=== PATIENT | male | born 1965 | race Caucasian/White ===

== ENCOUNTER 2018-01-19 07:48 | Day surgery (SDC) | payer MEDICARE ==
[2018-01-19] MEDS ORDERED: PROPRANOLOL HCL 20 MG TABLET PO ONE (09:00)
[2018-01-19] MEDS ORDERED: ALBUTEROL SULFATE 0.083% NEB 2.5 MG/3 ML AMPUL NEB ONE (09:28)
[2018-01-19] MEDS ORDERED: MIDAZOLAM 2 MG/2 ML INJ ONE (10:06)
[2018-01-19] MEDS ORDERED: PROPOFOL INJ 200 MG/20 ML VIAL IV ONE (10:06)
[2018-01-19] MEDS ORDERED: MEPERIDINE HCL/PF INJ 25 MG/1 ML DISP.SYRIN IV PRN (10:22)
[2018-01-19] MEDS ORDERED: PROMETHAZINE HCL INJ 25 MG/1 ML VIAL IV PRN ×2 (10:22)
[2018-01-19] MEDS ORDERED: OXYCODONE-ACETAMINOPHEN 5-325 MG TABLET PO PRN ×2 (10:22)
[2018-01-19] MEDS ORDERED: DIPHENHYDRAMINE HCL 50 MG/ML VIAL IV PRN (10:22)
[2018-01-19] MEDS ORDERED: FENTANYL CITRATE INJ/PF 100 MCG/2 ML AMPUL IV PRN ×3 (10:22)
[2018-01-19 12:08] VITALS: BP 128/71
--- NOTE | 2018-01-19 12:32 | Operative Report ---
Operative Report DATE OF SURGERY: 01/19/18 Operative Report: the risks, benefits and alternatives are discussed with the patient informed consent is obtained time out is called Propofol sedation provided colonoscopy to the cecum with intubation of the TI all other segments are visualized retroflexion is performed PREOPERATIVE DIAGNOSIS: blood in stools. ? IBD POSTOPERATIVE DIAGNOSIS: normal colonoscopy. mild ileitis, biopsy. internal hemorrhoids OPERATION: colonoscopy with bx SURGEON: DESTINEE REILLY ANESTHESIA: LMAC TISSUE REMOVED OR ALTERED: as noted above COMPLICATIONS: none ESTIMATED BLOOD LOSS: none INTRAOPERATIVE FINDINGS: as noted above PROCEDURE: patient tolerated his procedure well no post procedure complications are noted patient is discharged in good condition discharge date 01/19/18 discharge diet and activity : as tolerated follow up in 2-3 weeks patient is advised to call office or go to ED if any other issues will wait on path
--- NOTE | 2018-01-19 13:12 | Operative Report ---
Operative Report DATE OF SURGERY: 01/19/18 Operative Report: Previous noted should be disregarded Risks, benefits and alternatives are discussed with the patient in detail time out is called Propofol sedation is provided colonoscopy is advanced to the cecum prep is good photodocumentation is provided PREOPERATIVE DIAGNOSIS: blood in stools. encounter for colorectal cancer screening POSTOPERATIVE DIAGNOSIS: normal colonoscopy, colon polyps x3, 2 ablated in situ , 1 snared and retrived. internal hemorrhoids OPERATION: colonoscopy with snare polypectomy SURGEON: DESTINEE REILLY ANESTHESIA: LMAC TISSUE REMOVED OR ALTERED: as noted above COMPLICATIONS: none ESTIMATED BLOOD LOSS: none INTRAOPERATIVE FINDINGS: as noted above PROCEDURE: patient tolerated the procedure well no post procedure complications patient is discharged in good condition discharge date: 01/19/18 discharge activity and diet: as tolerated patient will need colonoscopy in 3-5 years follow in 2-3 weeks wait on pathology patient is instructed to call the office or go to ED as needed
== END 2018-01-19 12:05 | disposition home or self-care (01) ==
LOC: OROUT 07:48
PROVIDERS: ATTEND Internal Medicine Gastroenterology
DX: K92.1 Melena (principal); K63.5 Polyp of colon; K64.8 Other hemorrhoids; F17.210 Nicotine dependence, cigarettes, uncomplicated; K21.9 Gastro-esophageal reflux disease without esophagitis; Z79.899 Other long term (current) drug therapy
CPT/HCPCS: 45385; 88305 ×2; J2250; A9270 ×2; J2704; 812; J3490

== ENCOUNTER 2019-12-06 09:03 | Observation (INO) | payer MEDICARE ==
[2019-12-06 09:57] LABS: ABSOLUTE LYMPHOCYTES (AUTO) 1.2 10^3/uL (0.5-4.7); ABSOLUTE MONOCYTES (AUTO) 0.9 10^3/uL (0.1-1.4); ABSOLUTE NEUT (AUTO) 4.6 10^3/uL (1.7-8.2); BASOPHILS % (AUTO) 0.5 % (0-2); EOSINOPHILS % (AUTO) 0.2 % (0-6); HEMATOCRIT 43.3 % (37.9-51.0); LYMPHOCYTES % (AUTO) 18.2 % (13-45); MEAN CORPUSCULAR HEMOGLOBIN 31.9 pg (27.0-33.4); MEAN CORPUSCULAR HGB CONC 34.6 g/dL (32.0-36.0); MEAN CORPUSCULAR VOLUME 92 fl (80-97); MONOCYTES % (AUTO) 12.7 % (3-13); PLATELET COUNT 224 10^3/uL (150-450); RED CELL DISTRIBUTION WIDTH 13.5 % (11.5-14.0); SEGMENTED NEUTROPHILS % (AUTO) 68.4 % (42-78); TOTAL CELLS COUNTED % (AUTO) 100 %; WHITE BLOOD COUNT 6.7 10^3/uL (4.0-10.5)
--- NOTE | 2019-12-06 10:00 | RADIOLOGY REPORT (SQ) ---
EXAM DESCRIPTION: CHEST SINGLE VIEW COMPLETED DATE/TIME: 12/06/2019 9:50 am REASON FOR STUDY: BED 16 DB COMPARISON: 02/28/2010 EXAM PARAMETERS: NUMBER OF VIEWS: One view. TECHNIQUE: Single frontal radiographic view of the chest acquired. RADIATION DOSE: NA LIMITATIONS: None. FINDINGS: LUNGS AND PLEURA: Trace right effusion versus pleural thickening. Minimal subjacent opaci ties at the costophrenic angle. No pneumothorax. Unremarkable left hemithorax. MEDIASTINUM AND HILAR STRUCTURES: No masses. Contour normal. HEART AND VASCULAR STRUCTURES: Heart normal in size. Normal vasculature. BONES: No acute findings. HARDWARE: Partially visualized cervical fusion hardware. OTHER: No other significant finding. IMPRESSION: Trace right effusion and basilar opacities, possibly atelectasis or infection. TECHNICAL DOCUMENTATION: JOB ID: [id number] 2010 [employer]- All Rights Reserved Reading location - IP/workstation name: [email or web address]
[2019-12-06] MEDS ORDERED: IPRATROPIUM BROMIDE 0.02% NEB 0.5 MG/2.5 ML AMPUL NEB ONE (10:15)
[2019-12-06] MEDS ORDERED: ALBUTEROL SULFATE 0.083% NEB 2.5 MG/3 ML AMPUL NEB ONE (10:15)
[2019-12-06] MEDS ORDERED: CEFTRIAXONE 2 GM/D5W RTU 2 GM/50 ML RTUPB IV ONE (10:16)
[2019-12-06] MEDS ORDERED: AZITHROMYCIN 250 MG TABLET PO ONE (10:16)
[2019-12-06 10:17] LABS: ALBUMIN 4.5 g/dL (3.5-5.0); ALKALINE PHOSPHATASE 63 U/L (38-126); ANION GAP 12 (5-19); ASPARTATE AMINO TRANSFERASE 35 U/L (17-59); BILIRUBIN,DIRECT 0.1 mg/dL (0.0-0.4); BILIRUBIN,TOTAL 0.5 mg/dL (0.2-1.3); BLOOD UREA NITROGEN 11 mg/dL (7-20); CALCIUM 8.7 mg/dL (8.4-10.2); CARBON DIOXIDE 29 mmol/L (22-30); CHLORIDE 95 mmol/L (98-107); CREATINE KINASE 232 U/L (55-170); GLUCOSE 113 mg/dL (75-110); POTASSIUM 4.2 mmol/L (3.6-5.0); TOTAL PROTEIN 7.4 g/dL (6.3-8.2)
[2019-12-06 10:28] LABS: CREATINE KINASE MB 2.87 ng/mL (<4.55)
--- NOTE | 2019-12-06 10:30 | ER Document Report ---
ED General - General Chief Complaint: Breathing Difficulty Stated Complaint: SHORTNESS OF BREATH/HEADACHE Time Seen by Provider: 12/06/19 09:38 Primary Care Provider: RIA FOUNTAIN PA-C [Primary Care Provider] - Follow up as needed Mode of Arrival: Ambulatory Information source: Patient TRAVEL OUTSIDE OF THE [place] IN LAST 30 DAYS: No - HPI Notes: Patient complains of shortness of breath and cough for several days. He has had some subjective fever and chills. No significant vomiting or diarrhea. No significant past medical history. Patient is a daily smoker. The shortness of breath is been constant. Is been moderate to severe. Worse with exertion better with rest. No radiation of the symptoms. He denies any significant productivity from the cough. - Related Data Allergies/Adverse Reactions: No Known Allergies Allergy (Verified 12/06/19 09:52) Home Medications: Paroxetine, Propanolol, tempazepam, rexulti, doxepin. Past Medical History - General Information source: Patient - Social History Smoking Status: Current Every Day Smoker Chew tobacco use (# tins/day): No Frequency of alcohol use: None Drug Abuse: None Family History: Reviewed & Not Pertinent Patient has suicidal ideation: No Patient has homicidal ideation: No - Past Medical History Cardiac Medical History: Denies: Hx Coronary Artery Disease, Hx Heart Attack, Hx Hypertension Pulmonary Medical History: Denies: Hx Asthma, Hx Bronchitis, Hx COPD, Hx Pneumonia Neurological Medical History: Denies: Hx Cerebrovascular Accident, Hx Seizures GI Medical History: Reports: Hx Gastroesophageal Reflux Disease Musculoskeletal Medical History: Denies Hx Arthritis Psychiatric Medical History: Reports: Hx Depression Review of Systems - Review of Systems Constitutional: Chills, Fever, Malaise Cardiovascular: denies: Chest pain, Palpitations Respiratory: Cough, Short of breath -: Yes All other systems reviewed and negative Physical Exam - Vital signs Vitals: Temp Pulse Resp BP Pulse Ox 99.5 F 89 36 H 131/78 H 83 L 12/06/19 09:09 12/06/19 09:09 12/06/19 09:09 12/06/19 09:09 12/06/19 09:09 Interpretation: Hypoxic - General General appearance: Alert In distress: Mild - respiratory - HEENT Head: Normocephalic, Atraumatic Eyes: Normal Pupils: PERRL - Respiratory Respiratory status: Respiratory distress - mild, Tachypnea Chest status: Nontender Breath sounds: Rhonchi, Wheezing Chest palpation: Normal - Cardiovascular Rhythm: Regular Heart sounds: Normal auscultation Murmur: No - Abdominal Inspection: Normal Distension: No distension Bowel sounds: Normal Tenderness: Nontender Organomegaly: No organomegaly - Back Back: Normal, Nontender - Extremities General upper extremity: Normal inspection, Nontender, Normal color, Normal ROM, Normal temperature General lower extremity: Normal inspection, Nontender, Normal color, Normal ROM, Normal temperature, Normal weight bearing. No: Shawna's sign - Neurological Neuro grossly intact: Yes Cognition: Normal Orientation: AAOx4 [place] Coma Scale Eye Opening: Spontaneous [place] Coma Scale Verbal: Oriented Concepcion Coma Scale Motor: Obeys Commands Concepcion Coma Scale Total: 15 Speech: Normal Motor strength normal: LUE, RUE, LLE, RLE Sensory: Normal - Psychological Associated symptoms: Normal affect, Normal mood - Skin Skin Temperature: Warm Skin Moisture: Dry Skin Color: Normal Course - Re-evaluation Re-evalutation: 12/06/19 11:35 Patient presents with shortness of breath. He was hypoxic. He is a daily smoker. However he does not follow with a physician regularly so my suspicion is he has an undiagnosed COPD. I will treat the patient with nebulizers antibiotics and I referred the patient for admission. - Vital Signs Vital signs: Temp Pulse Resp BP Pulse Ox 98.9 F 89 21 H 127/79 H 86 L 12/06/19 10:01 12/06/19 09:09 12/06/19 10:01 12/06/19 10:01 12/06/19 10:01 - Laboratory Result Diagrams: 12/06/19 09:39 12/06/19 09:39 Laboratory results interpreted by me: 12/06/19 12/06/19 12/06/19 09:39 09:39 10:57 Sodium 135.7 L Chloride 95 L Glucose 113 H Creatine Kinase 232 H NT-Pro-B Natriuret Pep 157 H Urine Protein 100 H Urine Ketones 80 H Urine Blood SMALL H Urine Urobilinogen 2.0 H - Diagnostic Test Radiology reviewed: Image reviewed, Reports reviewed Discharge - Discharge Clinical Impression: Hypoxia URI (upper respiratory infection) Qualifiers: URI type: unspecified URI Qualified Code(s): J06.9 - Acute upper respiratory infection, unspecified Respiratory failure with hypoxia Qualifiers: Chronicity: acute Qualified Code(s): J96.01 - Acute respiratory failure with hypoxia Condition: Fair Disposition: ADMITTED INPATIENT Admitting Provider: [facility] (Hospitalist) Unit Admitted: Medical Floor - [place] to admit Referrals: RIA FOUNTAIN PA-C [Primary Care Provider] - Follow up as needed
[2019-12-06 10:34] LABS: TROPONIN I < 0.012 ng/mL
[2019-12-06 10:36] LABS: A TYPE INFLUENZA AG NEGATIVE (NEGATIVE); B INFLUENZA AG NEGATIVE (NEGATIVE)
[2019-12-06 11:18] LABS: APPEARANCE,URINE SLIGHTLY-CLOUDY; BILIRUBIN,URINE NEGATIVE (NEGATIVE); GLUCOSE, URINE NEGATIVE (NEGATIVE); KETONES,URINE 80 mg/dL (NEGATIVE); LEUKOCYTE ESTERASE,URINE NEGATIVE (NEGATIVE); NITRITE,URINE NEGATIVE (NEGATIVE); PROTEIN,URINE 100 mg/dL (NEGATIVE); URINE SPECIFIC GRAVITY 1.028
[2019-12-06 11:24] LABS: COLOR,URINE YELLOW
[2019-12-06] MEDS ORDERED: METHYLPREDNISOLONE INJ 125 MG/2 ML SDV IV ONE (11:37)
[2019-12-06] MEDS ORDERED: ONDANSETRON HCL INJ/PF 4 MG/2 ML SDV IV PRN (12:47)
[2019-12-06] MEDS ORDERED: ACETAMINOPHEN 325 MG TABLET PO PRN (12:47)
[2019-12-06] MEDS ORDERED: NORMAL SALINE 1000 ML 1,000 ML IV PRN (12:47)
[2019-12-06] MEDS ORDERED: MAG HYDROX/AL HYDROX/SIMETH SUSP 30 ML UDCUP PO PRN (12:47)
[2019-12-06] MEDS ORDERED: ALBUTEROL SULFATE 0.083% NEB 2.5 MG/3 ML AMPUL NEB PRN (12:47)
[2019-12-06 12:50] LABS: ARTERIAL BLOOD BASE EXCESS 2.8 mmol/L; ARTERIAL BLOOD FIO2 4L; ARTERIAL BLOOD H2CO3 1.74 mmol/L (1.05-1.35); ARTERIAL BLOOD HCO3 30.2 mmol/L (20-24); ARTERIAL BLOOD PCO2 57.9 mmHg (35-45); ARTERIAL BLOOD PH 7.34 (7.35-7.45); ARTERIAL BLOOD PO2 56.5 mmHg (80-100)
[2019-12-06] MEDS ORDERED: GUAIFENESIN SYRP 200 MG/10 ML UDC PO PRN (12:54)
--- NOTE | 2019-12-06 13:14 | PDOC H&P ---
History of Present Illness Admission Date/PCP: 12/06/19 11:56 RIA FOUNTAIN PA-C Patient complains of: shortness of breath History of Present Illness: JANET KING is a 54 year old male with a past medical history significant for anxiety/depression, short-term memory loss, tobacco dependence with continued use, and likely undiagnosed COPD based upon presenting symptoms and chest x-ray findings he presented to the emergency department today with a complaint of 3 days of progressively worsening shortness of breath, frontal headache, malaise, fatigue, and productive cough. The patient's family members have had similar symptoms about a severe over the previous 1 to 2 weeks. Evaluation in the emergency department revealed hypoxia on room air (84%) and low-grade temperature of 99.5. CBC, chemistry, troponin, proBNP, lactic acid, and influenza were benign. Urinalysis shows dehydration with increase specific gravity, protein, and ketones. ABG demonstrates a partially compensated respiratory acidosis with hypercapnia and hypoxia. Chest x-ray shows possible right basilar atelectasis versus pneumonia. Patient who is has received supplemental oxygen, nebulizer treatments, Solu- Medrol, azithromycin and Rocephin. He is referred to the hospitalist service for admission and management of the above-stated complaints and findings. Past Medical History Cardiac Medical History: Reports: None Pulmonary Medical History: Reports: None EENT Medical History: Reports: None Neurological Medical History: Reports: Other - Chronic short-term memory loss Endocrine Medical History: Reports: None Renal/ Medical History: Reports: None Malignancy Medical History: Reports: None GI Medical History: Reports: Gastroesophageal Reflux Disease Musculoskeltal Medical History: Denies: Arthritis Psychiatric Medical History: Reports: Depression, General Anxiety Disorder, Post Traumatic Stress Disorder, Tobacco Dependency Traumatic Medical History: Reports: None Hematology: Denies: Anemia Infectious Medical History: Reports: None Past Surgical History Past Surgical History: Reports: None Social History Information Source: Patient Lives with: Family Smoking Status: Current Every Day Smoker Cigarettes Packs Per Day: 1 Electronic Cigarette use?: No Frequency of Alcohol Use: None Hx Recreational Drug Use: No Hx Prescription Drug Abuse: No - Advance Directive Resuscitation Status: Full Code Family History Family History: Reviewed & Not Pertinent Parental Family History Reviewed: Yes Children Family History Reviewed: Yes Sibling(s) Family History Reviewed.: Yes Medication/Allergy Home Medications: Brexpiprazole [Rexulti] 3 mg PO DAILY 01/19/18 Doxepin HCl [Silenor] 3 mg PO HSP PRN 01/19/18 Esomeprazole Magnesium [Nexium] 40 mg PO DAILY 01/19/18 Paroxetine HCl [Paxil] 30 mg PO DAILY 01/19/18 Propranolol HCl [Inderal 20 mg Tablet] 20 mg PO BID 01/19/18 Temazepam 30 mg PO HSP PRN 01/19/18 Allergies/Adverse Reactions: No Known Allergies Allergy (Verified 12/06/19 09:52) Review of Systems Constitutional: PRESENT: anorexia, fatigue, headache(s), night sweats. ABSENT: chills, fever(s), weight gain, weight loss Eyes: ABSENT: visual disturbances Ears: ABSENT: hearing changes Cardiovascular: PRESENT: dyspnea on exertion. ABSENT: chest pain, edema, orthropnea, palpitations Respiratory: PRESENT: cough, dyspnea, sputum. ABSENT: hemoptysis Gastrointestinal: ABSENT: abdominal pain, constipation, diarrhea, hematemesis, hematochezia, nausea, vomiting Genitourinary: ABSENT: dysuria, hematuria Musculoskeletal: ABSENT: joint swelling Integumentary: ABSENT: rash, wounds Neurological: ABSENT: abnormal gait, abnormal speech, confusion, dizziness, focal weakness, syncope Psychiatric: ABSENT: anxiety, depression, homidical ideation, suicidal ideation Endocrine: ABSENT: cold intolerance, heat intolerance, polydipsia, polyuria Hematologic/Lymphatic: ABSENT: easy bleeding, easy bruising Physical Exam Vital Signs: Temp Pulse Resp BP Pulse Ox 98.9 F 89 26 H 118/72 90 L 12/06/19 10:01 12/06/19 09:09 12/06/19 12:01 12/06/19 12:01 12/06/19 12:01 Intake & Output 12/05/19 12/06/19 12/07/19 06:59 06:59 06:59 Intake Total 50 Balance 50 Weight 80.739 kg General appearance: PRESENT: no acute distress, cooperative, well-developed, well-nourished, other - Acutely ill-appearing Head exam: PRESENT: atraumatic, normocephalic Eye exam: PRESENT: conjunctiva pink, EOMI, PERRLA. ABSENT: scleral icterus Ear exam: PRESENT: normal external ear exam Mouth exam: PRESENT: dry mucosa, tongue midline Neck exam: ABSENT: carotid bruit, JVD, lymphadenopathy, thyromegaly Respiratory exam: PRESENT: rhonchi, symmetrical, unlabored, wheezes, other - Supplemental oxygen via nasal cannula. ABSENT: rales Cardiovascular exam: PRESENT: RRR, +S1, +S2, tachycardia - HR <105. ABSENT: diastolic murmur, rubs, systolic murmur Vascular exam: PRESENT: normal capillary refill GI/Abdominal exam: PRESENT: normal bowel sounds, soft. ABSENT: distended, guarding, mass, organolmegaly, rebound, tenderness Rectal exam: PRESENT: deferred Extremities exam: PRESENT: full ROM. ABSENT: calf tenderness, clubbing, pedal edema Musculoskeletal exam: PRESENT: ambulatory Neurological exam: PRESENT: alert, awake, oriented to person, oriented to place, oriented to time, oriented to situation, CN II-XII grossly intact, other - Forgetful; baseline per family. ABSENT: motor sensory deficit Psychiatric exam: PRESENT: appropriate affect, normal mood. ABSENT: homicidal ideation, suicidal ideation Skin exam: PRESENT: dry, intact, warm. ABSENT: cyanosis, rash Results Laboratory Results: 12/06/19 09:39 12/06/19 09:39 12/06/19 12/06/19 12/06/19 09:39 09:39 09:39 WBC 6.7 RBC 4.70 Hgb 15.0 Hct 43.3 MCV 92 MCH 31.9 MCHC 34.6 RDW 13.5 Plt Count 224 Seg Neutrophils % 68.4 Carbonic Acid HCO3/H2CO3 Ratio ABG pH ABG pCO2 ABG pO2 ABG HCO3 ABG O2 Saturation ABG Base Excess FiO2 Sodium 135.7 L Potassium 4.2 Chloride 95 L Carbon Dioxide 29 Anion Gap 12 BUN 11 Creatinine 0.68 Est GFR ( Amer) > 60 Glucose 113 H Lactic Acid 0.9 Calcium 8.7 Total Bilirubin 0.5 AST 35 Alkaline Phosphatase 63 Total Protein 7.4 Albumin 4.5 Urine Color Urine Appearance Urine pH Ur Specific Harper Urine Protein Urine Glucose (UA) Urine Ketones Urine Blood Urine Nitrite Ur Leukocyte Esterase Urine WBC (Auto) Urine RBC (Auto) 12/06/19 12/06/19 10:57 12:22 WBC RBC Hgb Hct MCV MCH MCHC RDW Plt Count Seg Neutrophils % Carbonic Acid 1.74 H HCO3/H2CO3 Ratio 17:1 ABG pH 7.34 L ABG pCO2 57.9 H ABG pO2 56.5 L ABG HCO3 30.2 H ABG O2 Saturation 87.0 L ABG Base Excess 2.8 FiO2 4L Sodium Potassium Chloride Carbon Dioxide Anion Gap BUN Creatinine Est GFR ( Amer) Glucose Lactic Acid Calcium Total Bilirubin AST Alkaline Phosphatase Total Protein Albumin Urine Color YELLOW Urine Appearance SLIGHTLY-CLOUDY Urine pH 6.0 Ur Specific Harper 1.028 Urine Protein 100 H Urine Glucose (UA) NEGATIVE Urine Ketones 80 H Urine Blood SMALL H Urine Nitrite NEGATIVE Ur Leukocyte Esterase NEGATIVE Urine WBC (Auto) 3 Urine RBC (Auto) 3 12/06/19 12/06/19 12/06/19 09:39 09:39 09:39 Creatine Kinase 232 H CK-MB (CK-2) 2.87 Troponin I < 0.012 NT-Pro-B Natriuret Pep 157 H Impressions: Chest X-Ray 12/06/19 09:15 IMPRESSION: Trace right effusion and basilar opacities, possibly atelectasis or infection. Assessment and Plan - Diagnosis (1) Acute respiratory failure with hypoxia and hypercapnia Is this a current diagnosis for this admission?: Yes Plan: The patient is admitted to the medical floor on continuous cardiac telemetry. He is provided supplemental oxygen and BiPAP as needed to maintain saturations greater than 89%. He is started on scheduled and as needed nebulizer treatments. We will continue empiric treatment for bronchitis with doxycycline p.o. twice daily. Mucomyst nebs twice daily. Mucinex twice daily. IV Solu-Medrol. Robitussin as needed for cough. Flutter valve to bedside. (2) COPD exacerbation Is this a current diagnosis for this admission?: Yes Plan: Likely undiagnosed COPD based upon tobacco history, exam, HPI, chest x-ray findings, and ABG results. Management as above. (3) Generalized anxiety disorder Is this a current diagnosis for this admission?: Yes Plan: We will continue home medication regiment once reconciled. (4) Tobacco dependence Is this a current diagnosis for this admission?: Yes Plan: Smoking cessation encouraged. Nicotine replacement therapies provided. (5) URI (upper respiratory infection) Qualifiers: URI type: unspecified URI Qualified Code(s): J06.9 - Acute upper respiratory infection, unspecified Is this a current diagnosis for this admission?: Yes Plan: Likely precipitating COPD exacerbation and current acute respiratory failure. Patient's family members had similar symptoms earlier this week. Influenza negative. - Time Time Spent with patient: 35 or more minutes Medications reviewed and adjusted accordingly: Yes Anticipated discharge: Home Within: within 48 hours
--- NOTE | 2019-12-06 14:11 | EKG REPORT ---
SEVERITY:- ABNORMAL ECG - SINUS RHYTHM LEFT BUNDLE BRANCH BLOCK OLD ANTERIOR CT : Confirmed by: Jori Simon MD 06-Dec-2019 14:11:21
[2019-12-06] MEDS: METHYLPREDNISOLONE INJ 40 MG/1 ML SDV IV SCH ×2 (14:19→21:47)
[2019-12-06] MEDS: HEPARIN SOD (PORCINE) 5,000 UNIT/ML 1 ML VIAL SUBCUT SCH ×2 (14:19→21:48)
[2019-12-06] MEDS: IPRATROPIUM/ALBUTEROL 0.5-2.5 MG/3 ML AMPUL NEB SCH ×2 (14:19→20:18)
[2019-12-06] MEDS ORDERED: [UNRECOGNIZED DRUG - OTHER] PO PRN (19:23)
[2019-12-06] MEDS ORDERED: ACETAMINOPH PO PRN (19:23)
[2019-12-06] MEDS ORDERED: (PENDING PHARMACY ID) (Temazepam [Temazepam] 30 MG) PO PRN (19:23)
[2019-12-06] MEDS ORDERED: DOXEPIN HCL 25 MG CAPSULE PO PRN (19:23)
[2019-12-06] MEDS: ACETYLCYSTEINE 20% SOLN 800 MG/4 ML VIAL.NEB NEB SCH (20:23)
[2019-12-06] MEDS ORDERED: TEMAZEPAM 15 MG CAPSULE PO PRN (21:15)
[2019-12-06] MEDS: FAMOTIDINE 20 MG TABLET PO SCH (21:48)
[2019-12-06] MEDS: GUAIFENESIN 600 MG TABLET.SA PO SCH (21:48)
[2019-12-06] MEDS: DOXYCYCLINE HYCLATE 100 MG TABLET PO SCH (22:00)
[2019-12-07] MEDS: IPRATROPIUM/ALBUTEROL 0.5-2.5 MG/3 ML AMPUL NEB SCH ×4 (01:19→20:34)
[2019-12-07 06:24] LABS: HEMATOCRIT 42.1 % (37.9-51.0); HEMOGLOBIN 14.5 g/dL (13.5-17.0); MEAN CORPUSCULAR HGB CONC 34.4 g/dL (32.0-36.0); MEAN CORPUSCULAR VOLUME 93 fl (80-97); PLATELET COUNT 205 10^3/uL (150-450); RED BLOOD COUNT 4.52 10^6/uL (4.35-5.55); RED CELL DISTRIBUTION WIDTH 13.4 % (11.5-14.0); WHITE BLOOD COUNT 5.2 10^3/uL (4.0-10.5)
[2019-12-07 06:40] LABS: ANION GAP 11 (5-19); BLOOD UREA NITROGEN 17 mg/dL (7-20); CALCIUM 9.1 mg/dL (8.4-10.2); CARBON DIOXIDE 29 mmol/L (22-30); CHLORIDE 98 mmol/L (98-107); GLUCOSE 132 mg/dL (75-110); POTASSIUM 4.6 mmol/L (3.6-5.0)
[2019-12-07] MEDS: HEPARIN SOD (PORCINE) 5,000 UNIT/ML 1 ML VIAL SUBCUT SCH ×3 (06:55→21:48)
[2019-12-07] MEDS: METHYLPREDNISOLONE INJ 40 MG/1 ML SDV IV SCH ×3 (07:27→21:47)
[2019-12-07] MEDS: ACETYLCYSTEINE 20% SOLN 800 MG/4 ML VIAL.NEB NEB SCH ×2 (08:37→20:34)
[2019-12-07] MEDS ORDERED: (PENDING PHARMACY ID) (Paroxetine Hcl [Paxil] 30 MG) PO SCH (10:00)
[2019-12-07] MEDS ORDERED: (PENDING PHARMACY ID) (Brexpiprazole [Rexulti] 3 MG) PO SCH (10:00)
[2019-12-07] MEDS: PAROXETINE HCL 20 MG TABLET PO SCH (10:04)
[2019-12-07] MEDS: FAMOTIDINE 20 MG TABLET PO SCH ×2 (10:05→21:47)
[2019-12-07] MEDS: GUAIFENESIN 600 MG TABLET.SA PO SCH ×2 (10:06→21:47)
[2019-12-07] MEDS: DOCUSATE SODIUM 100 MG CAPSULE PO SCH (10:06)
[2019-12-07] MEDS: NICOTINE 21 MG/24 HR PATCH.TD24 TD SCH (10:08)
[2019-12-07] MEDS: PROPRANOLOL HCL 20 MG TABLET PO SCH ×2 (10:18→21:23)
[2019-12-07] MEDS: DOXYCYCLINE HYCLATE 100 MG TABLET PO SCH ×2 (10:54→21:47)
[2019-12-07] MEDS ORDERED: ONDANSETRON HCL INJ/PF 4 MG/2 ML SDV IV PRN (14:30)
--- NOTE | 2019-12-07 18:11 | PDOC PROGRESS REPORT ---
Subjective Progress Note for:: 12/07/19 Subjective:: JANET KING is a 54 year old male with a past medical history significant for anxiety/depression, short-term memory loss, tobacco dependence with continued use, and likely undiagnosed COPD based upon presenting symptoms and chest x-ray findings who was admitted 12/06/19 for acute respiratory failure with hypoxia and hypercapnia secondary to a COPD exacerbation. Patient was seen on afternoon rounds with his sister present. He is found resting in bed, comfortably, on supplemental oxygen via nasal cannula at 5 L/min. He was sleeping as I entered the room but did wake easily when I said his name. He states that he is feeling much better today, however, does c ontinue to become short of breath with minimal exertion. He also continues to have a nonproductive cough but overall is feeling better than yesterday. His sister notes that he does continue to have increased work of breathing although this is significantly improved from time of admission. They deny fever, chills, chest pain, palpitations, abdominal pain, nausea vomiting and diarrhea. Hopeful to discharge to home tomorrow. They have no other questions or concerns. No concerns per nursing. Reason For Visit: ACUTE RESPIRATORY FAILURE WITH HYPOXIA Physical Exam Vital Signs: Temp Pulse Resp BP Pulse Ox 98.5 F 58 L 18 107/57 L 99 12/07/19 15:41 12/07/19 15:41 12/07/19 15:41 12/07/19 15:41 12/07/19 15:41 Intake & Output 12/06/19 12/07/19 12/08/19 06:59 06:59 06:59 Intake Total 586 476 Output Total 400 Balance 586 76 Weight 78.5 kg General appearance: PRESENT: no acute distress, cooperative, well-developed, well-nourished Head exam: PRESENT: atraumatic, normocephalic Eye exam: PRESENT: conjunctiva pink, EOMI, PERRLA. ABSENT: scleral icterus Ear exam: PRESENT: normal external ear exam Mouth exam: PRESENT: moist, tongue midline Neck exam: ABSENT: carotid bruit, JVD, lymphadenopathy, thyromegaly Respiratory exam: PRESENT: prolonged expiratory phas, rhonchi, symmetrical, u nlabored, other - Supplemental oxygen by nasal cannula. ABSENT: rales, wheezes Cardiovascular exam: PRESENT: RRR, +S1, +S2. ABSENT: diastolic murmur, rubs, systolic murmur Pulses: PRESENT: normal dorsalis pedis pul Vascular exam: PRESENT: normal capillary refill Extremities exam: PRESENT: full ROM. ABSENT: calf tenderness, clubbing, pedal edema Musculoskeletal exam: PRESENT: ambulatory Neurological exam: PRESENT: alert, awake, oriented to person, oriented to place, oriented to time, oriented to situation, CN II-XII grossly intact, other - Sh ort-term memory loss; baseline per patient and family. ABSENT: motor sensory deficit Psychiatric exam: PRESENT: appropriate affect, normal mood. ABSENT: homicidal ideation, suicidal ideation Skin exam: PRESENT: dry, intact, warm. ABSENT: cyanosis, rash Results Laboratory Results: 12/07/19 05:15 12/07/19 05:15 12/07/19 12/07/19 05:15 05:15 WBC 5.2 RBC 4.52 Hgb 14.5 Hct 42.1 MCV 93 MCH 32.0 MCHC 34.4 RDW 13.4 Plt Count 205 Sodium 138.2 Potassium 4.6 Chloride 98 Carbon Dioxide 29 Anion Gap 11 BUN 17 Creatinine 0.64 Est GFR ( Amer) > 60 Glucose 132 H Calcium 9.1 12/06/19 12/06/19 12/06/19 09:39 09:39 09:39 Creatine Kinase 232 H CK-MB (CK-2) 2.87 Troponin I < 0.012 NT-Pro-B Natriuret Pep 157 H Impressions: Chest X-Ray 12/06/19 09:15 IMPRESSION: Trace right effusion and basilar opacities, possibly atelectasis or infection. Assessment and Plan - Diagnosis (1) Acute respiratory failure with hypoxia and hypercapnia Is this a current diagnosis for this admission?: Yes Plan: Improved; decreased work of breathing, no longer with wheezes. Does remain on supplemental oxygen. The patient is admitted to the medical floor on continuous cardiac telemetry. He is provided supplemental oxygen as needed to maintain saturations greater than 89%. Have asked nursing to begin weaning oxygen. Patient declined use of BiPAP due to claustrophobia/anxiety. Continue on scheduled and as needed nebulizer treatments. We will continue empiric treatment for bronchitis with doxycycline p.o. twice daily. Mucomyst nebs twice daily. Mucinex twice daily. IV Solu-Medrol; begin weaning. Robitussin as needed for cough. Flutter valve to bedside. (2) COPD exacerbation Is this a current diagnosis for this admission?: Yes Plan: Likely undiagnosed COPD based upon tobacco history, exam, HPI, chest x-ray findings, and ABG results. Management as above. We will plan to discharge home on Brio or Advair. (3) Generalized anxiety disorder Is this a current diagnosis for this admission?: Yes Plan: Continue home dose of propanolol, Paxil, Restoril, Rexulti, and doxepin (4) Tobacco dependence Is this a current diagnosis for this admission?: Yes Plan: Smoking cessation encouraged. Nicotine replacement therapies provided. (5) URI (upper respiratory infection) Qualifiers: URI type: unspecified URI Qualified Code(s): J06.9 - Acute upper respiratory infection, unspecified Is this a current diagnosis for this admission?: Yes Plan: Likely precipitating COPD exacerbation and current acute respiratory failure. Patient's family members had similar symptoms earlier this week. Influenza negative. Supportive care and symptom management. - Time Time Spent with patient: 25-34 minutes Medications reviewed and adjusted accordingly: Yes Anticipated discharge: Home Within: within 24 hours
[2019-12-08] MEDS: IPRATROPIUM/ALBUTEROL 0.5-2.5 MG/3 ML AMPUL NEB SCH ×2 (01:59→08:56)
[2019-12-08] MEDS: METHYLPREDNISOLONE INJ 40 MG/1 ML SDV IV SCH (05:15)
[2019-12-08] MEDS: HEPARIN SOD (PORCINE) 5,000 UNIT/ML 1 ML VIAL SUBCUT SCH (05:15)
[2019-12-08] MEDS: ACETYLCYSTEINE 20% SOLN 800 MG/4 ML VIAL.NEB NEB SCH (08:56)
[2019-12-08] MEDS: DOXYCYCLINE HYCLATE 100 MG TABLET PO SCH (09:29)
[2019-12-08] MEDS: FAMOTIDINE 20 MG TABLET PO SCH (09:29)
[2019-12-08] MEDS: DOCUSATE SODIUM 100 MG CAPSULE PO SCH (09:30)
[2019-12-08] MEDS: PAROXETINE HCL 20 MG TABLET PO SCH (09:30)
[2019-12-08] MEDS: GUAIFENESIN 600 MG TABLET.SA PO SCH (09:30)
[2019-12-08] MEDS: NICOTINE 21 MG/24 HR PATCH.TD24 TD SCH (09:32)
[2019-12-08 12:47] VITALS: BP 108/85
--- NOTE | 2019-12-09 17:56 | PDOC DISCHARGE SUMMARY ---
Impression - Admit/DC Date/PCP Admission Date/Primary Care Provider: 12/06/19 11:56 RIA FOUNTAIN PA-C Discharge Date: 12/08/19 - Discharge Diagnosis (1) Acute respiratory failure with hypoxia and hypercapnia Is this a current diagnosis for this admission?: Yes (2) COPD exacerbation Is this a current diagnosis for this admission?: Yes (3) Generalized anxiety disorder Is this a current diagnosis for this admission?: Yes (4) Tobacco dependence Is this a current diagnosis for this admission?: Yes (5) URI (upper respiratory infection) Is this a current diagnosis for this admission?: Yes - Additional Information Resuscitation Status: Full Code Discharge Diet: Cardiac Discharge Activity: Activity As Tolerated, Balance Activity w/Rest Referrals: RIA FOUNTAIN PA-C [Primary Care Provider] - 12/14/19 10:30 am Prescriptions: Fluticasone/Salmeterol [Advair 250-50 Diskus 14 Dose/Diskus] 1 inh IH Q12H #1 inhaler Albuterol Sulfate [Albuterol Sulfate Hfa] 1 - 2 gm IH Q4HP PRN #1 hfa.aer.ad PRN Reason: Prednisone [Deltasone 20 mg Tablet] 60 mg PO DAILY #12 tablet Guaifenesin [Mucinex Sr 600 mg Tablet.sa] 600 mg PO Q12 #14 tablet.sa Nicotine [Nicoderm 21 mg/24 Hr Transderm Patch] 1 each TD DAILY #30 patch.td24 Famotidine [Pepcid 20 mg Tablet] 20 mg PO Q12 #60 tablet Doxycycline Hyclate [Vibramycin 100 mg Tablet] 100 mg PO Q12 #14 tablet Home Medications: Brexpiprazole [Rexulti] 3 mg PO DAILY 01/19/18 Paroxetine HCl [Paxil] 30 mg PO DAILY 01/19/18 Propranolol HCl [Inderal 20 mg Tablet] 20 mg PO BID 01/19/18 Temazepam 30 mg PO HSP PRN 01/19/18 Dextromethorphn/Acetaminoph/Cp [Coricidin Hbp Max Strength Flu] 1 tab PO DAILYP PRN 12/06/19 Doxepin HCl [Sinequan 25 mg Capsule] 25 mg PO HSP PRN 12/06/19 Acetaminophen [Tylenol 325 mg Tablet] 650 mg PO Q4HP PRN tablet 12/08/19 Albuterol Sulfate [Albuterol Sulfate Hfa] 1 - 2 gm IH Q4HP PRN #1 hfa.aer.ad 12/08/19 Doxycycline Hyclate [Vibramycin 100 mg Tablet] 100 mg PO Q12 #14 tablet 12/08/19 Famotidine [Pepcid 20 mg Tablet] 20 mg PO Q12 #60 tablet 12/08/19 Fluticasone/Salmeterol [Advair 250-50 Diskus 14 Dose/Diskus] 1 inh IH Q12H #1 inhaler 12/08/19 Guaifenesin [Mucinex Sr 600 mg Tablet.sa] 600 mg PO Q12 #14 tablet.sa 12/08/19 Nicotine [Nicoderm 21 mg/24 Hr Transderm Patch] 1 each TD DAILY #30 patch.td24 12/08/19 Prednisone [Deltasone 20 mg Tablet] 60 mg PO DAILY #12 tablet 12/08/19 History of Present Illiness History of Present Illness: JANET KING is a 54 year old male with a past medical history significant for anxiety/depression, short-term memory loss, tobacco dependence with continued use, and likely undiagnosed COPD based upon presenting symptoms and chest x-ray findings he presented to the emergency department today with a complaint of 3 days of progressively worsening shortness of breath, frontal headache, malaise, fatigue, and productive cough. The patient's family members have had similar symptoms about a severe over the previous 1 to 2 weeks. Evaluation in the emergency department revealed hypoxia on room air (84%) and low-grade temperature of 99.5. CBC, chemistry, troponin, proBNP, lactic acid, and influenza were benign. Urinalysis shows dehydration with increase specific gravity, protein, and ketones. ABG demonstrates a partially compensated respiratory acidosis with hypercapnia and hypoxia. Chest x-ray shows possible right basilar atelectasis versus pneumonia. Patient who is has received supplemental oxygen, nebulizer treatments, Solu- Medrol, azithromycin and Rocephin. He is referred to the hospitalist service for admission and management of the above-stated complaints and findings. Hospital Course Hospital Course: (1) Acute respiratory failure with hypoxia and hypercapnia Resolved. Ambulating room air saturation 89% without increased heart rate or work of breathing. Patient and family were offered an additional day of observation and treatment in the hospital, however felt comfortable discharging to home. The patient was admitted to the medical floor on continuous cardiac telemetry. He was supported with supplemental oxygen, scheduled and as needed nebulizer treatments, Mucomyst nebs twice daily, Mucinex, Robitussin, and IV Solu-Medrol. He was placed on empiric oral doxycycline for treatment of bronchitis related to his increase sputum production. He was offered BiPAP but declined related to claustrophobia/anxiety. Pulmonary toilet was encouraged with flutter valve and ambulation. The patient's symptoms gradually improved and IV Solu-Medrol was weaned until it is appropriate to transition to oral prednisone. He is hemodynamically stable, asymptomatic, and stable for discharge home. (2) COPD exacerbation Acute exacerbation has resolved Likely undiagnosed COPD based upon tobacco history, exam, HPI, chest x-ray findings, and ABG results. Evaluation and management as above. He is discharged home with prescription for Advair. Patient and sister are advised of the importance of follow-up with primary care provider for additional follow-up and care. (3) Generalized anxiety disorder Stable on home dose of propanolol, Paxil, Restoril, Rexulti, and doxepin (4) Tobacco dependence Smoking cessation encouraged. Nicotine replacement therapies provided. (5) URI (upper respiratory infection) Likely precipitating COPD exacerbation and current acute respiratory failure. Patient's family members had similar symptoms earlier this week. Influenza negative. Supportive care and symptom management as above. Physical Exam Vital Signs: Temp Pulse Resp BP Pulse Ox 97.3 F 63 16 108/85 90 L 12/08/19 12:44 12/08/19 12:44 12/08/19 12:44 12/08/19 12:44 12/08/19 12:44 Intake & Output 12/08/19 12/09/19 12/10/19 06:59 06:59 06:59 Intake Total 948 447 Output Total 1000 175 Balance -52 272 Weight 78.1 kg General appearance: PRESENT: no acute distress, cooperative, well-developed, well-nourished Head exam: PRESENT: atraumatic, normocephalic Eye exam: PRESENT: conjunctiva pink, EOMI, PERRLA. ABSENT: scleral icterus Mouth exam: PRESENT: moist, tongue midline Respiratory exam: PRESENT: prolonged expiratory phas, rhonchi, symmetrical, unlabored. ABSENT: rales, wheezes Cardiovascular exam: PRESENT: RRR, +S1, +S2. ABSENT: diastolic murmur, rubs, systolic murmur Vascular exam: PRESENT: normal capillary refill Rectal exam: PRESENT: deferred Extremities exam: PRESENT: full ROM. ABSENT: calf tenderness, clubbing, pedal edema Neurological exam: PRESENT: alert, awake, oriented to person, oriented to place, oriented to time, oriented to situation, CN II-XII grossly intact, other - Short-term memory loss at baseline. ABSENT: motor sensory deficit Psychiatric exam: PRESENT: appropriate affect, normal mood. ABSENT: homicidal ideation, suicidal ideation Skin exam: PRESENT: dry, intact, warm. ABSENT: cyanosis, rash Results Laboratory Results: WBC 5.2 10^3/uL (4.0-10.5) 12/07/19 05:15 RBC 4.52 10^6/uL (4.35-5.55) 12/07/19 05:15 Hgb 14.5 g/dL (13.5-17.0) 12/07/19 05:15 Hct 42.1 % (37.9-51.0) 12/07/19 05:15 MCV 93 fl (80-97) 12/07/19 05:15 MCH 32.0 pg (27.0-33.4) 12/07/19 05:15 MCHC 34.4 g/dL (32.0-36.0) 12/07/19 05:15 RDW 13.4 % (11.5-14.0) 12/07/19 05:15 Plt Count 205 10^3/uL (150-450) 12/07/19 05:15 Lymph % (Auto) 18.2 % (13-45) 12/06/19 09:39 [place] % (Auto) 12.7 % (3-13) 12/06/19 09:39 Eos % (Auto) 0.2 % (0-6) 12/06/19 09:39 Baso % (Auto) 0.5 % (0-2) 12/06/19 09:39 Absolute Neuts (auto) 4.6 10^3/uL (1.7-8.2) 12/06/19 09:39 Absolute Lymphs (auto) 1.2 10^3/uL (0.5-4.7) 12/06/19 09:39 Absolute Monos (auto) 0.9 10^3/uL (0.1-1.4) 12/06/19 09:39 Absolute Eos (auto) 0.0 10^3/uL (0.0-0.6) 12/06/19 09:39 Absolute Basos (auto) 0.0 10^3/uL (0.0-0.2) 12/06/19 09:39 Seg Neutrophils % 68.4 % (42-78) 12/06/19 09:39 Carbonic Acid 1.74 mmol/L (1.05-1.35) H 12/06/19 12:22 HCO3/H2CO3 Ratio 17:1 12/06/19 12:22 ABG pH 7.34 (7.35-7.45) L 12/06/19 12:22 ABG pCO2 57.9 mmHg (35-45) H 12/06/19 12:22 ABG pO2 56.5 mmHg (80-100) L 12/06/19 12:22 ABG HCO3 30.2 mmol/L (20-24) H 12/06/19 12:22 ABG Total CO2 32.0 mmol/L (23-27) H 12/06/19 12:22 ABG O2 Saturation 87.0 % (94-98) L 12/06/19 12:22 ABG Base Excess 2.8 mmol/L 12/06/19 12:22 FiO2 4L 12/06/19 12:22 Sodium 138.2 mmol/L (137-145) 12/07/19 05:15 Potassium 4.6 mmol/L (3.6-5.0) 12/07/19 05:15 Chloride 98 mmol/L (98-107) 12/07/19 05:15 Carbon Dioxide 29 mmol/L (22-30) 12/07/19 05:15 Anion Gap 11 (5-19) 12/07/19 05:15 BUN 17 mg/dL (7-20) 12/07/19 05:15 Creatinine 0.64 mg/dL (0.52-1.25) 12/07/19 05:15 Est GFR ( Amer) > 60 (>60) 12/07/19 05:15 Est GFR (MDRD) Non-Af > 60 (>60) 12/07/19 05:15 Glucose 132 mg/dL (75-110) H 12/07/19 05:15 Lactic Acid 0.9 mmol/L (0.7-2.1) 12/06/19 09:39 Calcium 9.1 mg/dL (8.4-10.2) 12/07/19 05:15 Total Bilirubin 0.5 mg/dL (0.2-1.3) 12/06/19 09:39 Direct Bilirubin 0.1 mg/dL (0.0-0.4) 12/06/19 09:39 Neonat Total Bilirubin Not Reportable 12/06/19 09:39 Neonat Direct Bilirubin Not Reportable 12/06/19 09:39 Neonat Indirect Bili Not Reportable 12/06/19 09:39 AST 35 U/L (17-59) 12/06/19 09:39 ALT 16 U/L (<50) 12/06/19 09:39 Alkaline Phosphatase 63 U/L (38-126) 12/06/19 09:39 Creatine Kinase 232 U/L (55-170) H 12/06/19 09:39 CK-MB (CK-2) 2.87 ng/mL (<4.55) 12/06/19 09:39 Troponin I < 0.012 ng/mL 12/06/19 09:39 NT-Pro-B Natriuret Pep 157 pg/mL (<125) H 12/06/19 09:39 Total Protein 7.4 g/dL (6.3-8.2) 12/06/19 09:39 Albumin 4.5 g/dL (3.5-5.0) 12/06/19 09:39 Urine Color YELLOW 12/06/19 10:57 Urine Appearance SLIGHTLY-CLOUDY 12/06/19 10:57 Urine pH 6.0 (5.0-9.0) 12/06/19 10:57 Ur Specific [place] 1.028 12/06/19 10:57 Urine Protein 100 mg/dL (NEGATIVE) H 12/06/19 10:57 Urine Glucose (UA) NEGATIVE mg/dL (NEGATIVE) 12/06/19 10:57 Urine Ketones 80 mg/dL (NEGATIVE) H 12/06/19 10:57 Urine Blood SMALL (NEGATIVE) H 12/06/19 10:57 Urine Nitrite NEGATIVE (NEGATIVE) 12/06/19 10:57 Urine Bilirubin NEGATIVE (NEGATIVE) 12/06/19 10:57 Urine Urobilinogen 2.0 mg/dL (<2.0) H 12/06/19 10:57 Ur Leukocyte Esterase NEGATIVE (NEGATIVE) 12/06/19 10:57 Urine WBC (Auto) 3 /HPF 12/06/19 10:57 Urine RBC (Auto) 3 /HPF 12/06/19 10:57 U Hyaline Cast (Auto) 1 /LPF 12/06/19 10:57 Granular Casts (Auto) 19 /LPF 12/06/19 10:57 Urine Mucus (Auto) OCC /LPF 12/06/19 10:57 Urine Ascorbic Acid NEGATIVE (NEGATIVE) 12/06/19 10:57 Influenza A (Rapid) NEGATIVE (NEGATIVE) 12/06/19 10:01 Influenza B (Rapid) NEGATIVE (NEGATIVE) 12/06/19 10:01 12/06/19 12/06/19 09:39 09:39 CK-MB (CK-2) 2.87 Troponin I < 0.012 NT-Pro-B Natriuret Pep 157 H Impressions: Chest X-Ray 12/06/19 09:15 IMPRESSION: Trace right effusion and basilar opacities, possibly atelectasis or infection. Plan Plan of Treatment: The patient is discharged to home into the care of family members. He is advised to follow-up with his primary care provider within 1 week. He is instructed to complete his full course of antibiotic therapy. Take other medications as prescribed. Avoid known respiratory triggers (smoke, pollen, dust, pet dander). Stop smoking. Return to the emergency department as needed for concerning symptoms. Time Spent: Greater than 30 Minutes Stroke Is this a Stroke Patient?: No Acute Heart Failure - Is this a Heart Failure Patient?: No
== END 2019-12-08 13:00 | disposition home or self-care (01) ==
LOC: ER 09:03 → EH 11:56 → INTOOBSV 11:56 → 4S 14:58
PROVIDERS: ADMIT Internal Medicine; ATTEND Internal Medicine
DX: J96.02 Acute respiratory failure with hypercapnia (principal); J96.01 Acute respiratory failure with hypoxia; J44.1 Chronic obstructive pulmonary disease with (acute) exacerbation; F41.1 Generalized anxiety disorder; F17.210 Nicotine dependence, cigarettes, uncomplicated; J06.9 Acute upper respiratory infection, unspecified; F32.9 Major depressive disorder, single episode, unspecified; F40.240 Claustrophobia; R41.3 Other amnesia; K21.9 Gastro-esophageal reflux disease without esophagitis; R63.0 Anorexia; R61 Generalized hyperhidrosis; Z79.899 Other long term (current) drug therapy
CPT/HCPCS: 93005; 94640 ×5; 99285; 96375; 96365; 36415 ×2; 87040; 82553; 82803; 82550; 83605; 85025; 85027; 80048; 80053; 81001; 84484; 87804; 83880; 71045; 93010; J1644 ×3; A9270 ×23; J2920 ×3; J2930; J3490; J0696; J7620